=== PATIENT | female | born 1990 | race Caucasian/White ===

== ENCOUNTER 2019-03-23 17:45 | Emergency (ER) | payer OTHER ==
[~2019-03-23] VITALS: Ht 160 cm; Wt 59.0 kg
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
[2019-03-23] MEDS ORDERED: BENADRYL IV STA (17:57)
[2019-03-23] MEDS ORDERED: ATIVAN IV STA (17:57)
[2019-03-23] MEDS ORDERED: HALDOL IM STA (17:57)
--- NOTE | 2019-03-23 17:57 | ER.PDOC ---
General Chief Complaint: Requesting Medical Care Stated Complaint: ALTERED MENTAL STATUS Time seen by MD: 18:00 Source: patient Exam Limitations: clinical condition History of Present Illness Timing/Duration: this afternoon Intent: Suicide Severity: moderate Related to: Spouse Associated Symptoms: Depressed, Agitated Prior symptoms/Treatment: Similar symptoms previous Past Medical History Medical History: other (PTSD, DEPRESSION) Reviewed Nursing Reviewed: Vital Signs, Abn. Noted Review of Systems All Other Systems: Reviewed and Negative Physical Exam General Appearance: Anxious Neck: Non-Tender, Full Range of Motion, Supple, Normal Inspection Respiratory: chest non-tender, lungs clear, normal breath sounds, no respir atory distress, no accessory muscle use Cardiovascular: Tachycardia Gastrointestinal: Normal Bowel Sounds, No Organomegaly, No Pulsatile Mass, Non Tender, Soft Extremities: Non-Tender, Normal Range of Motion, No Evidence of Trauma, No Edema Neurological/Psychiatric: Agitated Appearance/Memory/Insight: Disheveled Behavior/Eye Contact/Speech: Avoids Eye Contact, Increased Rate of Speech, Uncooperative Thoughts/Hallucinations: Delusions, Flight of Ideas Skin: Normal Color MONTEZ SHAW MD Mar 23, 2019 17:57
--- NOTE | 2019-03-23 18:25 | NUR ---
DEPARTURE PT LEFT WITHOUT BEING SEEN BY MD. [facility] NOTIFIED D/T PT STATUS.
[2019-03-23] MEDS ORDERED: NS 1000ML 1,000 ML IV ONE ×2 (18:30)
[2019-03-23 19:24] VITALS: BP 119/79
== END 2019-03-23 18:25 ==
LOC: EDBD 17:45 → ER 17:45
DX: F32.9 Major depressive disorder, single episode, unspecified (principal); R45.1 Restlessness and agitation
CPT/HCPCS: 99284